=== PATIENT | female | born 1965 | race Caucasian/White ===

== ENCOUNTER 2022-04-07 10:13 | Outpatient (CLI) | payer BC | END 2022-04-07 10:14 | disposition home or self-care (01) | LOC: BICRAD 10:13 → SCSRAD 10:14 | PROVIDERS: ATTEND Family Medicine | DX: M47.812 Spondylosis without myelopathy or radiculopathy, cervical region (principal); M43.12 Spondylolisthesis, cervical region; M25.78 Osteophyte, vertebrae | CPT/HCPCS: 72040 ==

== ENCOUNTER 2022-04-28 15:13 | Outpatient (CLI) | payer BC | END 2022-04-28 15:14 | disposition home or self-care (01) | LOC: SCSMRI 15:13 | PROVIDERS: ATTEND Family Medicine | DX: M47.812 Spondylosis without myelopathy or radiculopathy, cervical region (principal); M50.31 Other cervical disc degeneration, high cervical region | CPT/HCPCS: 72141 ==